=== PATIENT | female | born 2000 | race African-American/Black ===

== ENCOUNTER 2021-04-17 12:14 | Emergency (ER) | payer OTHER ==
[~2021-04-17] VITALS: Ht 172.7 cm; Wt 67.1 kg
[2021-04-17 12:33] VITALS: BP 131/74
--- NOTE | 2021-04-17 12:38 | NUR ---
PT AMBULATED TO ER BED 5.
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
[2021-04-17] MEDS ORDERED: ACETAMINOPHEN 325 MG TAB PO ONE (13:15)
[2021-04-17] MEDS ORDERED: IBUP-2213 PO (13:33)
--- NOTE | 2021-04-17 13:37 | NUR ---
PATIENT IN THE BATHROOM, FOR URINE.
--- NOTE | 2021-04-17 13:44 | NUR ---
URINE DIP WAS DONE
[2021-04-17 14:02] VITALS: BP 105/51
[2021-04-17 14:21] LABS: APPEARANCE,URINE HAZY (CLEAR); BILIRUBIN,URINE NEGATIVE (NEGATIVE); BLOOD, URINE NEGATIVE (NEGATIVE); COLOR,URINE YELLOW (YELLOW); LEUKOCYTE ESTERASE ,URINE NEGATIVE (NEGATIVE); NITRITE, URINE NEGATIVE (NEGATIVE); UGLUCOSE NEGATIVE (NEGATIVE)
== END 2021-04-17 14:01 | disposition home or self-care (01) ==
LOC: MED 12:14
DX: R10.2 Pelvic and perineal pain (principal); Z79.1 Long term (current) use of non-steroidal anti-inflammatories (NSAID); V89.2XXA Person injured in unspecified motor-vehicle accident, traffic, initial encounter; Y93.89 Activity, other specified; Y92.410 Unspecified street and highway as the place of occurrence of the external cause; Y99.8 Other external cause status
CPT/HCPCS: 81003; 81025; 99283